=== PATIENT | male | born 1945 | race Caucasian/White ===

== ENCOUNTER → 2018-01-24 | Outpatient (CLI) | payer OTHER | LOC: M.RAD 15:07 | DX: I70.0 Atherosclerosis of aorta (principal) ==

== ENCOUNTER → 2018-02-06 | Outpatient (CLI) | payer OTHER ==
[2018-02-06 12:59] LABS: CALCIUM 9.1 mg/dL (8.5-10.1); CREATININE 1.3 mg/dL (0.6-1.3); POTASSIUM 4.6 mmol/L (3.5-5.1)
== END ==
LOC: M.LAB 12:27
PROVIDERS: Internal Medicine Cardiovascular Disease
DX: I48.3 Typical atrial flutter (principal)